=== PATIENT | female | born 1975 | race African-American/Black ===

== ENCOUNTER 2022-08-11 15:05 | Emergency (ER) | payer MEDICAID, OTHER ==
[~2022-08-11] VITALS: Ht 157.5 cm; Wt 80.0 kg
[2022-08-11 15:08] VITALS: BP 118/70
[2022-08-11] MEDS ORDERED: ACETAMINOPHEN 325MG TABLET PO ONE (15:15)
[2022-08-11] MEDS ORDERED: T3 PO (16:57)
[2022-08-11] MEDS ORDERED: IBUP-2029 MT (16:57)
== END 2022-08-11 17:31 | disposition home or self-care (01) ==
LOC: ER 15:16
DX: S82.892A Other fracture of left lower leg, initial encounter for closed fracture (principal); S93.401A Sprain of unspecified ligament of right ankle, initial encounter; W18.30XA Fall on same level, unspecified, initial encounter; Y93.89 Activity, other specified; Y92.89 Other specified places as the place of occurrence of the external cause; Y99.8 Other external cause status
CPT/HCPCS: 29515; 73610; 99283; Z7610